=== PATIENT | female | born 1985 | race Caucasian/White ===

== ENCOUNTER 2024-10-30 11:40 | Emergency (ER) | payer OTHER, SELFPAY ==
--- NOTE | ~2024-10-30 | XR_ITS ---
EXAMINATION: XR CERVICAL SPINE CLINICAL INFORMATION: L neck pain, limited rom, no trauma COMPARISON: None available. TECHNIQUE: 4 views of the cervical spine were obtained. FINDINGS: No scoliosis. There is straightening of the normal lordosis, nonspecific. There is no fracture, compression deformity, subluxation, or suspicious bone lesion. There is normal alignment. The craniocervical junction and C1-2 articulation are intact and aligned. Disc spaces are preserved at all levels. Normal facet alignment bilaterally. No prevertebral soft tissue abnormality. Imaged lung apices are clear. XR/XR cervical spine 3V IMPRESSION: 1. No acute bony abnormalities of the cervical spine. 2. Mild straightening of the normal lordosis, nonspecific. Electronically signed by: Rylan Morgan MD 10/30/2024 01:04 PM EDT
[2024-10-30 12:02] VITALS: BP 168/97; PULSE 84; RESP 16; TEMP 36.7; O2SAT 100; BMI 24.9
--- NOTE | 2024-10-30 12:02 | ED.GENADULT ---
HPI - General Adult General Chief complaint: Neck Pain/Injury Stated complaint: neck pain Time Seen by Provider: 10/30/24 13:31 Source: patient Mode of arrival: ambulatory Limitations: no limitations History of Present Illness ED Provider: YARITZA COUCH PA-C HPI narrative: 39 year old female presents to the ED today for evaluation of left-sided neck pain which began on waking yesterday. Reports difficulty turning her head to the left. Feels like a pinched nerve . This is causing her to have a headache. She is unsure if she slept wrong. No blunt injury or trauma. Related Data Previous Rx's ?Medication ?Instructions ?Recorded cyclobenzaprine 5 mg tablet 5 mg PO Q8H 3 days #9 tabs 10/30/24 lidocaine 5 % topical patch 1 patch topical DAILY #15 ea 10/30/24 (Lidoderm) Allergies Allergy/AdvReac Type Severity Reaction Status Date / Time No Known Allergies Allergy Verified 10/30/24 12:04 Review of Systems Review of Systems: Constitutional: No fever, chills, fatigue, night sweats, weight changes ENT/Mouth: No ear pain, hearing loss, nasal congestion, sinus pain, rhinorrhea, sore throat Eyes: No eye pain, swelling, redness, vision changes, discharge Cardio: No chest pain, palpitations, BENOIT, orthopnea, peripheral edema Pulm: No SOB, cough, sputum, wheezing, dyspnea, hemoptysis GI: No nausea, vomiting, hematemesis, abdominal pain, diarrhea, constipation, hematochezia, melena : No irregular bleeding, dysuria, frequency, urgency, hesitancy, hematuria, flank pain, urinary flow changes, urinary incontinence or retention MSK: No back pain, joint pain, myalgias, +neck pain Skin: No lesions, rashes Neuro: No weakness, numbness, paresthesias, LOC, dizziness, headache Psych: No anxiety/panic, depression, SI/HI, AH/VH All other systems reviewed and are negative. [facility] Past Medical History Attestation statement: The following information was validated with the patient. Source: old records reviewed and nursing notes reviewed Social History Social History Advance Directives: No Advance Directives Information Provided: Yes Do you have a plan to hurt others: No Plan Physical Exam ED Vital Signs: Vital Signs - 24 hr 10/30/24 12:02 10/30/24 13:32 Temperature 98.1 F 98.1 F Pulse Rate 84 84 Respiratory Rate 16 16 Blood Pressure 168/97 H 154/81 H Pulse Oximetry 100 100 Oxygen Delivery Method Room Air Room Air BMI result Body Mass Index 24.9 hypertensive, vitals are otherwise wnl. General: Well appearing, in no acute distress. Skin: Warm, dry, intact. No rashes or lesions. Head: Normocephalic, atraumatic. EENT: Hearing is intact b/l. Conjunctiva clear. PERRLA. EOM intact. Moist mucous membranes.? Neck: +palpable spasm to left cervical paraspinal musculature, ttp, no overlying skin changes. Limited ROM of c spine w/ leftward motion. no midline cervical spinous tenderness, no step off deformity. Cardiac: Chest wall symmetric. RRR Lungs: Normal respiratory effort without accessory muscle use. CTA bilaterally Ext: Upper and lower extremities atraumatic, without tenderness, deformity, swelling or erythema Neuro: AOx3. Normal speech. Ambulating with steady gait. Course Course Course Narrative: cervical xrays unremarkable. exam is consistent with a muscle spasm. Treated with Toradol and lidocaine patch. Will discharge home with flexeril and lido patche. Patient has remained stable throughout ED visit today. Discussed worrisome signs and symptoms and when to return to the ED. All questions answered at this time. Patient is agreeable with disposition and stable for discharge. Medications Administered Discontinued Medications Generic Name Dose Route Start Last Admin Trade Name Freq PRN Reason Stop Dose Admin Ketorolac Tromethamine 30 mg 10/30/24 13:33 10/30/24 13:36 Ketorolac Tromethamine 30 Mg/Ml Vial IM 10/30/24 13:34 30 mg ONCE ONE Administration Lidocaine 1 patch 10/30/24 13:33 10/30/24 13:36 Lidocaine 4 % Patch Adh..Patch TRANSDERMA 10/30/24 13:34 1 patch ONCE ONE Administration Protocol Medical Decision Making Medical Decision Making MDM Narrative: 39 year old female presents to the ED today for evaluation of left-sided neck pain which began on waking yesterday. hypertensive, vitals are otherwise wnl. on exam, palpable spasm to left cervical paraspinal musculature, ttp, no overlying skin changes. Limited ROM of c spine w/ leftward motion. no midline cervical spinous tenderness, no step off deformity. Differential diagnosis include arthritis, MSK sprain/strain, fracture, cervical radiculopathy Plan for xr and disposition. Differential Diagnosis Differential Diagnoses: The differential diagnosis associated with the presentation includes as above. Admission/Observation not indicated Independent Interpretation I performed an independent interpretation of an: Plain X-Ray Interpretation: cervical xr without fracture Radiology Impression Discussion of test interpretation with radiology: I have reviewed the radiologist's reading. Radiologist Impression: Date of Service: 10/30/24 Procedure(s): XR cervical spine 3V Accession Number(s): [id number] cc: Physician,Unknown ; Yaritza Couch~ EXAMINATION: XR CERVICAL SPINE CLINICAL INFORMATION: L neck pain, limited rom, no trauma COMPARISON: None available. TECHNIQUE: 4 views of the cervical spine were obtained. FINDINGS: No scoliosis. There is straightening of the normal lordosis, nonspecific. There is no fracture, compression deformity, subluxation, or suspicious bone lesion. There is normal alignment. The craniocervical junction and C1-2 articulation are intact and aligned. Disc spaces are preserved at all levels. Normal facet alignment bilaterally. No prevertebral soft tissue abnormality. Imaged lung apices are clear. XR/XR cervical spine 3V IMPRESSION: 1. No acute bony abnormalities of the cervical spine. 2. Mild straightening of the normal lordosis, nonspecific. Electronically signed by: Rylan Morgan MD 10/30/2024 01:04 PM EDT RP Independent Historian Clinical information obtained from an independent historian. History obtained from or confirmed by: Friend Prescription Management I considered prescription management with: Pain Medication (lidoderm) and Other (flexeril) Social Determinants Patient?s care significantly limited by Social Determinants of Health including: Other Social Determinant of Health Critical Care Time Critical Care Time Critical Care Time: No Discharge Plan Discharge Clinical Impression: Cervical paraspinal muscle spasm Patient Disposition: Home, Self-Care Instructions: Muscle Spasm (ED) Additional Instructions: You were evaluated in the ED today for your neck pain. You have a spasm of your neck muscle. The xrays of your neck do not demonstrate fracture. Use ice several times per day for 20 minutes at a time for the next 48 hours and then change to heat. I recommend you take 600mg ibuprofen every 6 hours or tylenol 650mg every 6 hours as needed for pain. If needed, you can alternate these medications so that you take one medication every 3 hours. For example, at noon take ibuprofen, then at 3pm take tylenol, then at 6pm take ibuprofen. Flexeril is a muscle relaxer. Take this at night as it makes you drowsy. Do not drive, drink alcohol, or operate machinery while taking it. Lidoderm patches are numbing patches. Apply to painful areas. Please schedule an appointment for follow-up with your primary care provider this week for further evaluation of your symptoms. Return to the Emergency Department if you experience worsening neck pain, difficulty walking, fevers, numbness, tingling, incontinence, or any other concerning symptoms. In the case of an emergency call 911. Prescriptions: New cyclobenzaprine 5 mg tablet 5 mg PO Q8H 3 Days Qty: 9 0RF lidocaine [Lidoderm] 5 % adhesive patch,medicated 1 patch topical DAILY Qty: 15 0RF Rx Instructions: leave on most painful area for up to 12 hrs Referrals: Physician,Unknown J [Primary Care Provider, Medical] Stand Alone Forms: Work/School Release Interventions: ED Discharge Assessment Last Done: 10/30/24 13:32 Discharge Date/Time: 10/30/24 13:55 Print Language: Turkish
[2024-10-30 13:32] VITALS: BP 154/81; PULSE 84; RESP 16; TEMP 36.7; O2SAT 100
[2024-10-30] MEDS: Lidocaine 4 % Patch ADH..PATCH 1 PATCH TRANSDERMA (13:36)
== END 2024-10-30 13:55 | disposition home or self-care (01) ==
LOC: HO.ED 13:50
PROVIDERS: Emergency Provider Emergency Medicine
DX: M62.838 Other muscle spasm (principal); M54.2 Cervicalgia
CPT/HCPCS: 72040; 96372; 99283; 99284; J1885

== ENCOUNTER → 2024-10-30 12:05 | Outpatient (BNV) | payer OTHER, SELFPAY | PROVIDERS: Emergency Provider Emergency Medicine; Visit Provider Radiology Diagnostic Radiology | DX: M54.2 Cervicalgia (principal) | CPT/HCPCS: 72040 ==